=== PATIENT | male | born 1930 | race Caucasian/White ===

== ENCOUNTER 2017-05-22 15:08 | Emergency (ER) | payer OTHER, MEDICARE ==
[~2017-05-22] VITALS: Wt 65.8 kg
[~2017-05-22 15:08] MED LIST: CHEWABLE ASPIRI81 MG PO; CORTISPORIN 1%-10 M1 OT; DOCUSATE SODIU100 M2 PO; GLIPIZIDE5 MG PO; KEFLEX500 MG PO; LEVOTHYROXINE0.05 MG PO; VITAMIN D3400 IU PO; [UNRECOGNIZED DRUG - OTHER] PO
== END 2017-05-22 18:48 | disposition home or self-care (01) ==
LOC: ED 15:08
DX: S06.0X0A Concussion without loss of consciousness, initial encounter (principal); S51.012A Laceration without foreign body of left elbow, initial encounter; Z79.82 Long term (current) use of aspirin; V89.2XXA Person injured in unspecified motor-vehicle accident, traffic, initial encounter; Y93.89 Activity, other specified; Y92.413 State road as the place of occurrence of the external cause; Y99.9 Unspecified external cause status

== ENCOUNTER 2017-10-27 11:37 | Emergency (ER) | payer MEDICARE, OTHER ==
[~2017-10-27] VITALS: Ht 175.2 cm; Wt 70.3 kg
[2017-10-27] MEDS ORDERED: IBU800 MG PO (11:59)
== END 2017-10-27 12:15 | disposition home or self-care (01) ==
LOC: ED 11:37
DX: S39.011A Strain of muscle, fascia and tendon of abdomen, initial encounter (principal); Z79.82 Long term (current) use of aspirin; Z79.899 Other long term (current) drug therapy; W19.XXXA Unspecified fall, initial encounter; Y93.89 Activity, other specified; Y92.89 Other specified places as the place of occurrence of the external cause; Y99.8 Other external cause status

== ENCOUNTER 2018-07-12 16:44 | Emergency (ER) | payer MEDICARE, OTHER ==
[~2018-07-12] VITALS: Wt 65.8 kg
--- NOTE | ~2018-07-12 | EKG ---
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
[~2018-07-12 16:44] MED LIST changes: +IBU800 MG PO
[2018-07-12] MEDS ORDERED: SIMVASTATIN20 MG PO (16:52)
[2018-07-12] MEDS ORDERED: OMEPRAZOLE MAGN20 MG PO (16:53)
[2018-07-12 17:15] LABS: BASO % 0.5 % (0.0-1.0); EOS % 0.2 % (1.0-4.0); HEMATOCRIT 43.3 % (42.0-52.0); HEMOGLOBIN 14.8 g/dl (14.0-18.0); LYMPH # 1.1 10*3/uL (1.3-4.4); LYMPH % 12.4 % (27.0-41.0); MEAN CELL VOLUME 92.1 fl (80.0-94.0); MEAN CORPUSCULAR HGB 31.5 pg (27.0-31.0); MEAN CORPUSCULAR HGB CONC 34.2 g/dl (33.0-37.0); MONO # 0.5 10*3/uL (0.1-1.0); NEUT % 80.7 % (47.0-73.0); PLATELET COUNT AUTOMATED 215 10*3/uL (130-400); RED CELL DISTRI WIDTH 13.2 % (0-14.5); WHITE BLOOD COUNT 8.7 10*3/uL (4.8-10.8)
[2018-07-12 17:23] LABS: ACT PARTIAL THROMBO TIME 22.5 SECONDS (20.8-31.5)
[2018-07-12 17:29] LABS: ALKALINE PHOSPHATASE 67 U/L (45-117); BUN 10 mg/dl (7-24); CHLORIDE 105 mmol/L (98-107); CREATININE 1.25 mg/dL (0.70-1.30); LIPASE 123 U/L (73-393); POTASSIUM 3.7 mmol/L (3.5-5.1); SGOT/AST 18 IU/L (3-35); SGPT/ALT 25 U/L (12-78); SODIUM 142 mmol/L (136-145); TOTAL PROTEIN 7.1 gm/dL (6.4-8.2)
[2018-07-12 17:37] LABS: TROPONIN I < 0.015 ng/ml (<0.045)
== END 2018-07-12 17:49 | disposition short-term general hospital (02) ==
LOC: ED 16:44
PROVIDERS: Emergency Medicine
DX: I63.9 Cerebral infarction, unspecified (principal); E03.9 Hypothyroidism, unspecified; E11.9 Type 2 diabetes mellitus without complications; K21.9 Gastro-esophageal reflux disease without esophagitis; Z79.899 Other long term (current) drug therapy